=== PATIENT | female | born 1995 | race Caucasian/White ===

== ENCOUNTER 2017-02-19 06:22 | Observation (INO) | payer BC ==
[~2017-02-19] VITALS: Ht 175.3 cm; Wt 76.7 kg
[2017-02-19 08:19] LABS: HEMOGLOBIN 12.5 gm/dl (12.3-15.3); RED BLOOD COUNT 4.38 M/UL (4.00-5.10); WHITE BLOOD COUNT 12.6 K/UL (4.5-11.0)
[2017-02-19 08:42] LABS: BUN/CREATININE RATIO 17 (0-10)
[2017-02-20 06:02] LABS: RED BLOOD COUNT 3.55 M/UL (4.00-5.10); WHITE BLOOD COUNT 8.5 K/UL (4.5-11.0)
[2017-02-20 06:12] LABS: BUN/CREATININE RATIO 11 (0-10)
[2017-02-21] MEDS ORDERED: COLACE 100MG C100 MG PO (11:21)
[2017-02-21] MEDS ORDERED: NORCO 5-325 TA1 EACH PO (11:22)
== END 2017-02-21 13:32 | disposition home or self-care (01) ==
LOC: ER1 06:22 → MED SURG 4 15:23
PROVIDERS: Emergency Medicine; ADMIT Surgery
PROC: 0DTJ4ZZ Resection of Appendix, Percutaneous Endoscopic Approach (ICD-10-PCS; principal; 2017-02-19 13:45)
DX: K35.80 Unspecified acute appendicitis (principal); E66.9 Obesity, unspecified; Z68.24 Body mass index [BMI] 24.0-24.9, adult
CPT/HCPCS: 36415; 80048; 80053; 81001; 82150; 83690; 84703; 85025; 85027; 87086; 94640; 96374; 96375; 96376; 99285; G0378; J1200; J1335; J1885; J2250; J2270; J2405; J2710; J3010; J7030; J7050; J7120